=== PATIENT | female | born 1995 | race American Indian/Alaskan Native ===

== ENCOUNTER 2016-12-11 16:10 | Emergency (ER) | payer BC ==
[2016-12-11 16:39] LABS: Basophils % (Auto) 0.8 % (0.0-1.8); Eosinophils % (Auto) 0.5 % (0.0-4.3); Hematocrit 41.3 % (30.3-42.9); Hemoglobin 13.7 gm/dl (10.1-14.3); Mean Corpuscular HGB Conc 33 % (30-34); Mean Corpuscular Hemoglobin 30 pg (28-32); Mean Corpuscular Volume 89 fl (79-97); Platelet Count 269 K/mm3 (140-440); Red Blood Count 4.62 M/mm3 (3.65-5.03); Red Cell Distribution Width 13.9 % (13.2-15.2); White Blood Count 11.1 K/mm3 (4.5-11.0)
[2016-12-11 17:14] LABS: Bilirubin,Urine NEG (Negative); Blood,Urine SM (Negative); Ketones,Urine NEG (Negative); Leukocyte Esterase,Urine NEG (Negative); Mucus,Urine 2+ /HPF; Nitrite,Urine NEG (Negative); Protein,Urine <15 mg/dL mg/dL (Negative)
--- NOTE | 2016-12-11 19:16 | Ultrasound Report ---
FINAL REPORT EXAM: US OB TRANSVAGINAL HISTORY: abd pain/ vaginal bleeding TECHNIQUE: Ultrasound obstetrical transvaginal PRIORS: None. FINDINGS: There is gestational sac present within the lower uterine segment. A pole is identified with crown-rump length 2.3 centimeters corresponding to estimated gestational age 9 weeks 0 days with estimated date of delivery July 16, 2017 cardiac activity present with heart rate 173 beats per minute. There is mixed echogenicity focus just adjacent to the gestational sac measuring 4.5 x 1.4 by 3.0 centimeters suspicious for subchorionic hemorrhage. Uterus is 8.8 x 6.7 x 7.6 centimeters The right ovary is 4.4 x 1.8 x 4.0 centimeters. Left ovary is 3.3 x 1.5 x 2.3 centimeters. No free fluid identified in the cul-de-sac IMPRESSION: Gestational sac within the lower uterine segment. Single live intrauterine gestation estimated at 9 weeks 0 days. Probable moderate size subchorionic hemorrhage. Continued close interval followup recommended
--- NOTE | 2016-12-11 19:18 | Ultrasound Report ---
FINAL REPORT EXAM: US OB \T\lt; = 14 WEEKS FETUS HISTORY: abd pain/ vaginal bleeding TECHNIQUE: Ultrasound pelvis transabdominal PRIORS: None. FINDINGS: FINDINGS: There is gestational sac present within the lower uterine segment. A pole is identified with crown-rump length 2.3 centimeters corresponding to estimated gestational age 9 weeks 0 days with estimated date of delivery July 16, 2017 cardiac activity present with heart rate 173 beats per minute. There is mixed echogenicity focus just adjacent to the gestational sac measuring 4.5 x 1.4 by 3.0 centimeters suspicious for subchorionic hemorrhage. Uterus is 8.8 x 6.7 x 7.6 centimeters The right ovary is 4.4 x 1.8 x 4.0 centimeters. Left ovary is 3.3 x 1.5 x 2.3 centimeters. No free fluid identified in the cul-de-sac IMPRESSION: Gestational sac within the lower uterine segment. Single live intrauterine gestation estimated at 9 weeks 0 days. Probable moderate size subchorionic hemorrhage. Continued close interval followup recommended
--- NOTE | 2016-12-11 22:43 | Emergency Department Report ---
ED Female HPI - General Chief complaint: Vaginal Bleeding Stated complaint: X8WKS/BLEEDING Time Seen by Provider: 12/11/16 20:31 Source: patient Mode of arrival: Ambulatory Limitations: No Limitations - History of Present Illness Initial comments: 21-year-old female at 8 weeks gestation with no past medical history is presenting to the emergency department complaining of vaginal bleeding. Onset of symptoms started this morning. Patient states amount of blood is minimal, consistent with spotting. Patient denies pelvic pain. Patient denies: Fever/ chills, chest pain, shortness of breath, nausea/vomiting/diarrhea. MD Complaint: vaginal bleeding -: Gradual Radiation: non-radiating Severity: mild Consistency: intermittent Worsens with: none Are you Now?: Yes Associated Symptoms: denies: vaginal discharge, abdominal pain, nausea/vomiting , loss of appetite, dysuria, hematuria, shortness of breath, syncope, weakness - Related Data Previous Rx's Medication Instructions Recorded Last Taken Type Metoclopramide [Reglan] 10 mg PO TID #20 tab 12/11/16 Unknown Rx Prenat Vit Comb.10/Iron/FA/Dha 1 each PO 2XWHS #30 combo..pkg 12/11/16 Unknown Rx [Vitafol-Ob+Dha Combo Pack] Allergies Allergy/AdvReac Type Severity Reaction Status Date / Time No Known Allergies Allergy Unverified 12/11/16 16:13 ED Review of Systems ROS: Stated complaint: X8WKS/BLEEDING Other details as noted in HPI Constitutional: denies: chills, fever Eyes: denies: eye pain, eye discharge, vision change ENT: denies: ear pain, throat pain Respiratory: denies: cough, shortness of breath, wheezing Cardiovascular: denies: chest pain, palpitations Endocrine: no symptoms reported Gastrointestinal: denies: abdominal pain, nausea, diarrhea Genitourinary: other (vaginal spotting ). denies: urgency, dysuria, discharge Musculoskeletal: denies: back pain, joint swelling, arthralgia Skin: denies: rash, lesions Neurological: denies: headache, weakness, paresthesias Psychiatric: denies: anxiety, depression Hematological/Lymphatic: denies: easy bleeding, easy bruising ED Past Medical Hx - Past Medical History Previous Medical History?: No - Surgical History Past Surgical History?: No - Social History Smoking Status: Never Smoker Substance Use Type: None - Medications Home Medications: Home Medications Medication Instructions Recorded Confirmed Last Taken Type Metoclopramide [Reglan] 10 mg PO TID #20 tab 12/11/16 Unknown Rx Prenat Vit Comb.10/Iron/FA/Dha 1 each PO 2XWHS #30 combo..pkg 12/11/16 Unknown Rx [Vitafol-Ob+Dha Combo Pack] ED Physical Exam - General Limitations: No Limitations General appearance: alert, in no apparent distress - Head Head exam: Present: atraumatic, normocephalic - Eye Eye exam: Present: normal appearance - ENT ENT exam: Present: mucous membranes moist - Neck Neck exam: Present: normal inspection - Respiratory Respiratory exam: Present: normal lung sounds bilaterally. Absent: respiratory distress - Cardiovascular Cardiovascular Exam: Present: regular rate, normal rhythm. Absent: systolic murmur, diastolic murmur, rubs, gallop - GI/Abdominal GI/Abdominal exam: Present: soft, normal bowel sounds - External exam: Present: normal external exam Speculum exam: Present: normal speculum exam. Absent: erythema, vaginal discharge, cervical discharge, vaginal bleeding, tissue Bi-manual exam: Present: normal bi-manual exam. Absent: cervical motion tendernes, adnexal tenderness, uterine tenderness - Extremities Exam Extremities exam: Present: normal inspection - Back Exam Back exam: Present: normal inspection - Neurological Exam Neurological exam: Present: alert, oriented X3 - Psychiatric Psychiatric exam: Present: normal affect, normal mood - Skin Skin exam: Present: warm, dry, intact, normal color. Absent: rash ED Course Vital Signs 12/11/16 12/11/16 16:13 19:44 Temperature 98.5 F 98 F Pulse Rate 74 95 H Respiratory 18 18 Rate Blood Pressure 128/64 Blood Pressure 118/69 [Left] O2 Sat by Pulse 100 98 Oximetry - Reevaluation(s) Reevaluation #1: 12/11/16 22:42 Resting comfortably. she is aware there is a subchorionic hemorrhage, she's been given the results of the ultrasound to follow up with OB. ED Medical Decision Making - Lab Data Result diagrams: 12/11/16 16:21 - Radiology Data Radiology results: report reviewed, image reviewed Gestational sac within the lower uterine segment. Single live IUP gestation estimated 9 weeks 0 days. Probable moderate size subchorionic hemorrhage. Continue close interval follow-up recommended. Dr. CRISTIAN M.D. - Medical Decision Making -year-old female with no past medical history presented to ED complaining of vaginal bleeding. Critical Care Time: No Critical care attestation.: If time is entered above; I have spent that time in minutes in the direct care of this critically ill patient, excluding procedure time. ED Disposition Clinical Impression: Threatened Disposition: - TO HOME OR SELFCARE Is pt being admited?: No Does the pt Need Aspirin: No Condition: Stable Instructions: Threatened Miscarriage (ED) Prescriptions: Metoclopramide [Reglan] 10 mg PO TID #20 tab Prenat Vit Comb.10/Iron/FA/Dha [Vitafol-Ob+Dha Combo Pack] 1 each PO 2XWHS #30 combo..pkg Referrals: PRIMARY CARE, [Primary Care Provider] - 3-5 Days BANG NAIR MD [Staff Physician] - 2-3 Days Forms: Work/School Release Form(ED) Time of Disposition: 23:21
[2016-12-11 23:41] VITALS: BP 126/76
== END 2016-12-11 23:40 | disposition home or self-care (01) ==
LOC: ED 16:10
DX: O20.0 Threatened abortion (principal); Z3A.09 9 weeks gestation of pregnancy
CPT/HCPCS: 36415; 76801; 76817; 81001; 84702; 85025; 86850; 86900; 86901; 87210; 87591

== ENCOUNTER 2019-05-18 15:57 | Inpatient (IN) | payer BC, MEDICAID ==
[2019-05-18] MEDS ORDERED: LIDOCAINE (2%) 20 MG/1 ML VIAL 20 ML MDV INFILTRATI ONE (16:48)
[2019-05-18] MEDS ORDERED: MINERAL OIL 30 ML ORAL LIQD PO PRN (16:48)
[2019-05-18] MEDS ORDERED: TERBUTALINE 1 MG/1 ML INJ IVP PRN (16:48)
[2019-05-18] MEDS ORDERED: ePHEDrine SULFATE 50 MG/1 ML INJ IV PRN (16:48)
[2019-05-18] MEDS ORDERED: ONDANSETRON 4 MG/2 ML INJ IV PRN (16:48)
[2019-05-18] MEDS ORDERED: TERBUTALINE 1 MG/1 ML INJ SUB-Q PRN (16:48)
[2019-05-18] MEDS ORDERED: OXYTOCIN 20 UNIT/1000ML DRIP 20 UNITS/1,000 ML BAG IV SCH (17:00)
--- NOTE | 2019-05-18 17:20 | History and Physical Report ---
History of Present Illness Date of examination: 05/18/19 Date of admission: 05/18/2019 Chief complaint: Sent for IOL History of present illness: Pt is a 23yo AA Fe , KEREN 05/19/2019 (US; per [facility]), 39 weeks 6 days. Per records/LMP KEREN 05/10/2019 which would be 41 week 1 day. Pt hasn't been seen in OB office since 04/19/2019. Pt seen at [facility] today with decreased FM, nonreactive NST, BPP 11/21. Sent for induction of labor. Pt initiated care with [facility] at 13w2d. Co-managed with [facility] due to maternal obesity. Vitamin D deficiency (D3 supplementation). Varicella non-immune (plan vaccination PP). labs: O positive Rubella Immune HBsAg Negative HIV Negative VDRL Non-reactive GC Negative CHL Negative Trich Negative HSV2 Negative MSAFP Negative GBS Negative Past History Past Medical History: no pertinent history Past Surgical History: no surgical history [employer] History: denies: abnormal PAP smear, chlamydia, gonorrhea, hepatitis B, h epatitis C, herpes, HIV, syphilis, trichomonas Family/Genetic History: hypertension Social history: no significant social history, single, lives with family, full code. denies: smoking, alcohol abuse, prescription drug abuse, IV drug use - Obstetrical History Expected Date of Delivery: 05/19/19 Actual Gestation: 39 Week(s) 6 Day(s) : 2 Para: 1 Hx # Term Pregnancies: 1 Number of Pregnancies: 0 Spontaneous Abortions: 0 Induced : 0 Number of Living Children: 1 #1 Infant Gender: Male year: 2[age][birth year] Birthweight: 3.487 kg Method of Delivery: Vaginal Gestational age at delivery: 39 Complications: none Medications and Allergies Allergies Allergy/AdvReac Type Severity Reaction Status Date / Time No Known Allergies Allergy Unverified 12/11/16 16:13 Home Medications Medication Instructions Recorded Confirmed Last Taken Type Metoclopramide [Reglan] 10 mg PO TID #20 tab 12/11/16 Unknown Rx Vit 10/Iron/Folic/Dha 1 each PO 2XWHS #30 combo..pkg 12/11/16 Unknown Rx [Vitafol-Ob+Dha Combo Pack] Active Meds: Active Medications Ephedrine Sulfate (Ephedrine Sulfate) 10 mg IV Q2M PRN PRN Reason: Hypotension Oxytocin/Sodium Chloride (Pitocin/Ns 20 Unit/1000ml Drip) 20 units in 1,000 mls @ 125 mls/hr IV DIRECT RUY Lactated Ringer's (Lactated Ringers) 1,000 mls @ 125 mls/hr IV DIRECT RUY Lidocaine (Xylocaine 2%) 20 ml INFILTRATI ONCE ONE Stop: 05/18/19 16:49 Mineral Oil (Mineral Oil) 30 ml PO QHS PRN PRN Reason: Constipation Ondansetron HCl (Zofran) 4 mg IV Q8H PRN PRN Reason: Nausea And Vomiting Terbutaline Sulfate (Brethine) 0.25 mg SUB-Q ONCE PRN PRN Reason: Hyperstimulation/Hypertonicity Terbutaline Sulfate (Brethine) 0.25 mg IVP ONCE PRN PRN Reason: Hyperstimulation/Hypertonicity Review of Systems Eyes: normal appearance Cardiovascular: no chest pain, no shortness of breath Respiratory: no shortness of breath Breasts: normal Gastrointestinal: no nausea, no vomiting, no diarrhea, no constipation Genitourinary: normal appearance, no vaginal bleeding, no leakage of fluid, no genital sores, no contractions Integumentary: no rash, no sores, no lesions - Physical Exam Breasts: Positive: normal Cardiovascular: Regular rate, Normal S1, Normal S2, No murmurs Lungs: Positive: Clear to auscultation, Normal air movement Abdomen: Positive: normal appearance, soft, normal bowel sounds. Negative: distention Genitourinary (Female): Positive: normal external genitalia, normal perenium Vagina: Positive: normal moisture Uterus: Positive: enlarged (Gravid) Anus/Rectum: Positive: normal perianal skin Extremities: Positive: normal Deep Tendon Reflex Grade: Normal +2 - Obstetrical FHR: category 1 Uterine Contraction Monitor Mode: External Cervical Dilatation: 3 Cervical Effacement Percentage: 50 station: -2 Uterine Contraction Pattern: Absent Uterine Tone Measurement Phase: Resting Results All other labs normal. Assessment and Plan A: Term IUP at 39weeks 6days Category 1 tracing; Reactive NST GBS Negative IOL per [facility] (MO, BPP 6/10 in office today) P: Admit to L&D; Routine labor orders Pitocin augmentation Anticipate
[2019-05-18] MEDS ORDERED: OXYTOCIN DRIP 30 UNITS/500 ML BAG IV SCH (18:00)
[2019-05-18 19:48] LABS: Hematocrit 42.1 % (30.3-42.9); Hemoglobin 14.4 gm/dl (10.1-14.3); Mean Corpuscular HGB Conc 34 % (30-34); Mean Corpuscular Volume 86 fl (79-97); Platelet Count 244 K/mm3 (140-440); Red Cell Distribution Width 14.4 % (13.2-15.2)
[2019-05-18] MEDS: LACTATED RINGERS 1,000 ML IV SCH (22:10)
[2019-05-19] MEDS: LACTATED RINGERS 1,000 ML IV SCH ×2 (05:35→15:04)
--- NOTE | 2019-05-19 09:32 | Progress Note ---
Assessment and Plan - Patient Problems (1) Encounter for induction of labor Current Visit: Yes Status: Acute Plan to address problem: Continue routine labor orders Epidural placement AROM after epidural, place internals for monitoring Anticipate (2) Morbid obesity with BMI of 40.0-44.9, adult Current Visit: Yes Status: Acute Subjective - Subjective Date of service: 05/19/19 (924) Principal diagnosis: IOL Interval history: See admission H & P Patient reports: movement normal, contractions (painful ctxs), no loss of fluid, no vaginal bleeding Objective - Vital Signs Vital Signs: Vital Signs - 12hr 05/18/19 05/18/19 05/19/19 22:47 22:48 05:30 Temperature 97.9 F Pulse Rate 93 H 93 H 71 Respiratory 18 Rate Blood Pressure 113/58 Blood Pressure 113/58 [Left] O2 Sat by Pulse 98 Oximetry 05/19/19 05/19/19 05/19/19 05:35 05:40 05:45 Temperature Pulse Rate 72 68 67 Respiratory Rate Blood Pressure Blood Pressure [Left] O2 Sat by Pulse 97 97 97 Oximetry 05/19/19 05/19/19 05/19/19 05:50 05:55 06:00 Temperature Pulse Rate 67 76 54 L Respiratory Rate Blood Pressure Blood Pressure [Left] O2 Sat by Pulse 96 97 97 Oximetry 05/19/19 05/19/19 05/19/19 06:05 06:10 06:15 Temperature Pulse Rate 61 57 L 56 L Respiratory Rate Blood Pressure Blood Pressure [Left] O2 Sat by Pulse 97 97 97 Oximetry 05/19/19 05/19/19 05/19/19 06:20 06:25 06:30 Temperature Pulse Rate 56 L 55 L 60 Respiratory Rate Blood Pressure Blood Pressure [Left] O2 Sat by Pulse 97 97 97 Oximetry 05/19/19 05/19/19 05/19/19 06:35 06:40 06:45 Temperature Pulse Rate 53 L 59 L 55 L Respiratory Rate Blood Pressure Blood Pressure [Left] O2 Sat by Pulse 98 97 97 Oximetry 05/19/19 05/19/19 05/19/19 06:50 06:55 07:00 Temperature Pulse Rate 65 60 59 L Respiratory Rate Blood Pressure Blood Pressure [Left] O2 Sat by Pulse 98 97 97 Oximetry 05/19/19 05/19/19 05/19/19 07:05 07:10 07:15 Temperature Pulse Rate 59 L 63 56 L Respiratory Rate Blood Pressure Blood Pressure [Left] O2 Sat by Pulse 98 97 97 Oximetry 05/19/19 05/19/19 05/19/19 07:20 07:25 07:30 Temperature Pulse Rate 56 L 58 L 58 L Respiratory Rate Blood Pressure Blood Pressure [Left] O2 Sat by Pulse 97 98 98 Oximetry 05/19/19 05/19/19 05/19/19 07:35 07:40 07:41 Temperature 97.8 F Pulse Rate 59 L 54 L 54 L Respiratory 18 Rate Blood Pressure 120/65 Blood Pressure 120/65 [Left] O2 Sat by Pulse 98 98 Oximetry 05/19/19 05/19/19 05/19/19 07:45 07:50 07:55 Temperature Pulse Rate 55 L 55 L 54 L Respiratory Rate Blood Pressure Blood Pressure [Left] O2 Sat by Pulse 97 98 97 Oximetry 05/19/19 05/19/19 05/19/19 08:00 08:05 08:10 Temperature Pulse Rate 58 L 57 L 55 L Respiratory Rate Blood Pressure Blood Pressure [Left] O2 Sat by Pulse 97 97 98 Oximetry 05/19/19 05/19/19 05/19/19 08:15 08:27 08:28 Temperature Pulse Rate 60 65 63 Respiratory Rate Blood Pressure 131/66 Blood Pressure [Left] O2 Sat by Pulse 97 100 Oximetry 05/19/19 05/19/19 05/19/19 08:29 08:32 08:37 Temperature Pulse Rate 57 L 59 L 57 L Respiratory Rate Blood Pressure Blood Pressure [Left] O2 Sat by Pulse 90 99 99 Oximetry 05/19/19 08:51 Temperature Pulse Rate 56 L Respiratory Rate Blood Pressure 119/72 Blood Pressure [Left] O2 Sat by Pulse Oximetry - Exam Breasts: deferred Cardiovascular: Regular rate Lungs: Normal air movement Abdomen: Present: other (gravid) Uterus: Present: other (S=D) FHR: category 1 Uterine Contraction Monitor Mode: External Cervical Dilatation: 6 (Vertex) Cervical Effacement Percentage: 80 station: -1 Uterine Contraction Pattern: Irregular Uterine Tone Measurement Phase: Resting Uterine Contraction Intensity: Moderate Extremities: normal Deep Tendon Reflex Grade: Normal +2 - Labs Labs: Abnormal Labs 05/18/19 19:27 Hgb 14.4 H Laboratory Results - last 24 hr 05/18/19 05/18/19 19:27 19:30 WBC 8.7 RBC 4.90 Hgb 14.4 H Hct 42.1 MCV 86 MCH 29 MCHC 34 RDW 14.4 Plt Count 244 Blood Type O POSITIVE Antibody Screen Negative
[2019-05-19] MEDS ORDERED: NALOXONE 2 MG/2 ML INJ IV PRN (12:46)
[2019-05-19] MEDS ORDERED: ePHEDrine SULFATE 50 MG/1 ML INJ IV PRN (12:46)
--- NOTE | 2019-05-19 12:57 | Progress Note ---
Assessment and Plan - Patient Problems (1) Encounter for induction of labor Current Visit: Yes Status: Acute Plan to address problem: Continue routine labor orders AROM at 1215, clear fluids, tolerated well FSE placed for monitoring Continue Pitocin as tolerated Anticipate (2) Morbid obesity with BMI of 40.0-44.9, adult Current Visit: Yes Status: Acute Subjective - Subjective Date of service: 05/19/19 Principal diagnosis: IOL Interval history: See admission H & P Patient reports: new complaints (Feels much better after epidural), movement normal, no loss of fluid, no vaginal bleeding Objective - Vital Signs Vital Signs: Vital Signs - 12hr 05/19/19 05/19/19 05/19/19 05:30 05:35 05:40 Temperature Pulse Rate 71 72 68 Respiratory Rate Blood Pressure Blood Pressure [Left] O2 Sat by Pulse 98 97 97 Oximetry 05/19/19 05/19/19 05/19/19 05:45 05:50 05:55 Temperature Pulse Rate 67 67 76 Respiratory Rate Blood Pressure Blood Pressure [Left] O2 Sat by Pulse 97 96 97 Oximetry 05/19/19 05/19/19 05/19/19 06:00 06:05 06:10 Temperature Pulse Rate 54 L 61 57 L Respiratory Rate Blood Pressure Blood Pressure [Left] O2 Sat by Pulse 97 97 97 Oximetry 05/19/19 05/19/19 05/19/19 06:15 06:20 06:25 Temperature Pulse Rate 56 L 56 L 55 L Respiratory Rate Blood Pressure Blood Pressure [Left] O2 Sat by Pulse 97 97 97 Oximetry 05/19/19 05/19/19 05/19/19 06:30 06:35 06:40 Temperature Pulse Rate 60 53 L 59 L Respiratory Rate Blood Pressure Blood Pressure [Left] O2 Sat by Pulse 97 98 97 Oximetry 05/19/19 05/19/19 05/19/19 06:45 06:50 06:55 Temperature Pulse Rate 55 L 65 60 Respiratory Rate Blood Pressure Blood Pressure [Left] O2 Sat by Pulse 97 98 97 Oximetry 05/19/19 05/19/19 05/19/19 07:00 07:05 07:10 Temperature Pulse Rate 59 L 59 L 63 Respiratory Rate Blood Pressure Blood Pressure [Left] O2 Sat by Pulse 97 98 97 Oximetry 12/06/19 12/06/19 12/06/19 07:15 07:20 07:25 Temperature Pulse Rate 56 L 56 L 58 L Respiratory Rate Blood Pressure Blood Pressure [Left] O2 Sat by Pulse 97 97 98 Oximetry 05/19/19 05/19/19 05/19/19 07:30 07:35 07:40 Temperature 97.8 F Pulse Rate 58 L 59 L 54 L Respiratory 18 Rate Blood Pressure Blood Pressure 120/65 [Left] O2 Sat by Pulse 98 98 98 Oximetry 05/19/19 05/19/19 05/19/19 07:41 07:45 07:50 Temperature Pulse Rate 54 L 55 L 55 L Respiratory Rate Blood Pressure 120/65 Blood Pressure [Left] O2 Sat by Pulse 97 98 Oximetry 05/19/19 05/19/19 05/19/19 07:55 08:00 08:05 Temperature Pulse Rate 54 L 58 L 57 L Respiratory Rate Blood Pressure Blood Pressure [Left] O2 Sat by Pulse 97 97 97 Oximetry 05/19/19 05/19/19 05/19/19 08:10 08:15 08:27 Temperature Pulse Rate 55 L 60 65 Respiratory Rate Blood Pressure Blood Pressure [Left] O2 Sat by Pulse 98 97 100 Oximetry 05/19/19 05/19/19 05/19/19 08:28 08:29 08:32 Temperature Pulse Rate 63 57 L 59 L Respiratory Rate Blood Pressure 131/66 Blood Pressure [Left] O2 Sat by Pulse 90 99 Oximetry 05/19/19 05/19/19 05/19/19 08:37 08:51 09:31 Temperature Pulse Rate 57 L 56 L 65 Respiratory Rate Blood Pressure 119/72 Blood Pressure [Left] O2 Sat by Pulse 99 100 Oximetry 05/19/19 05/19/19 05/19/19 09:36 09:41 09:46 Temperature Pulse Rate 62 63 65 Respiratory Rate Blood Pressure Blood Pressure [Left] O2 Sat by Pulse 99 98 97 Oximetry 05/19/19 05/19/19 05/19/19 09:49 09:51 09:56 Temperature Pulse Rate 64 65 64 Respiratory Rate Blood Pressure Blood Pressure [Left] O2 Sat by Pulse 93 98 96 Oximetry 05/19/19 05/19/19 05/19/19 10:01 10:06 10:11 Temperature Pulse Rate 65 63 83 Respiratory Rate Blood Pressure Blood Pressure [Left] O2 Sat by Pulse 96 97 98 Oximetry 05/19/19 05/19/1905/19/19 10:12 10:16 10:21 Temperature Pulse Rate 68 66 61 Respiratory Rate Blood Pressure Blood Pressure [Left] O2 Sat by Pulse 80 L 99 98 Oximetry 05/19/19 05/19/19 05/19/19 10:26 10:28 10:29 Temperature Pulse Rate 66 66 68 Respiratory Rate Blood Pressure 133/60 Blood Pressure [Left] O2 Sat by Pulse 99 93 Oximetry 05/19/19 05/19/19 05/19/19 10:31 10:36 10:40 Temperature Pulse Rate 65 67 79 Respiratory Rate Blood Pressure 107/56 Blood Pressure [Left] O2 Sat by Pulse 97 98 94 Oximetry 05/19/19 05/19/19 05/19/19 10:41 10:46 10:48 Temperature Pulse Rate 84 90 87 Respiratory Rate Blood Pressure 118/77 131/72 Blood Pressure [Left] O2 Sat by Pulse 97 99 Oximetry 05/19/19 05/19/19 05/19/19 10:51 10:56 10:59 Temperature Pulse Rate 84 90 95 H Respiratory Rate Blood Pressure 126/90 Blood Pressure [Left] O2 Sat by Pulse 98 98 93 Oximetry 05/19/19 05/19/19 05/19/19 11:01 11:06 11:07 Temperature Pulse Rate 77 114 H 101 H Respiratory Rate Blood Pressure Blood Pressure [Left] O2 Sat by Pulse 91 98 92 Oximetry 05/19/19 05/19/19 05/19/19 11:10 11:11 11:16 Temperature Pulse Rate 75 69 63 Respiratory Rate Blood Pressure 144/76 Blood Pressure [Left] O2 Sat by Pulse 96 97 Oximetry 05/19/19 05/19/19 05/19/19 11:19 11:21 11:23 Temperature Pulse Rate 61 60 62 Respiratory Rate Blood Pressure 116/68 Blood Pressure [Left] O2 Sat by Pulse 97 89 Oximetry 05/19/19 05/19/19 05/19/19 11:26 11:31 11:36 Temperature Pulse Rate 72 64 Respiratory Rate Blood Pressure 114/68 Blood Pressure [Left] O2 Sat by Pulse 83 L 100 99 Oximetry 05/19/19 05/19/19 05/19/19 11:38 11:41 11:46 Temperature Pulse Rate 80 70 74 Respiratory Rate Blood Pressure 134/75 Blood Pressure [Left] O2 Sat by Pulse 87 98 98 Oximetry 05/19/19 05/19/19 05/19/19 11:51 11:56 12:01 Temperature Pulse Rate 65 66 78 Respiratory Rate Blood Pressure Blood Pressure [Left] O2 Sat by Pulse 98 99 87 Oximetry 05/19/19 05/19/19 05/19/19 12:02 12:06 12:11 Temperature Pulse Rate 77 62 58 L Respiratory Rate Blood Pressure 127/59 Blood Pressure [Left] O2 Sat by Pulse 99 100 Oximetry 05/19/19 05/19/19 05/19/19 12:16 12:21 12:26 Temperature Pulse Rate 64 56 L 55 L Respiratory Rate Blood Pressure Blood Pressure [Left] O2 Sat by Pulse 100 100 100 Oximetry 05/19/19 05/19/19 05/19/19 12:31 12:36 12:39 Temperature Pulse Rate 82 59 L 64 Respiratory Rate Blood Pressure Blood Pressure [Left] O2 Sat by Pulse 100 100 86 Oximetry 05/19/19 05/19/19 05/19/19 12:41 12:46 12:48 Temperature Pulse Rate 56 L 60 61 Respiratory Rate Blood Pressure Blood Pressure [Left] O2 Sat by Pulse 99 98 84 Oximetry - Exam Breasts: deferred Cardiovascular: Regular rate Lungs: Normal air movement FHR: category 1, other (FSE placed without difficulty) Uterine Contraction Monitor Mode: External Cervical Dilatation: 7 (majority of cervix posterior and on left) Cervical Effacement Percentage: 80 station: -1 Uterine Contraction Pattern: Irregular Uterine Tone Measurement Phase: Resting Uterine Contraction Intensity: Moderate Extremities: normal - Labs Labs: Abnormal Labs 05/18/19 19:27 Hgb 14.4 H Laboratory Results - last 24 hr 05/18/19 05/18/19 19:27 19:30 WBC 8.7 RBC 4.90 Hgb 14.4 H Hct 42.1 MCV 86 MCH 29 MCHC 34 RDW 14.4 Plt Count 244 Blood Type O POSITIVE Antibody Screen Negative
[2019-05-19] MEDS ORDERED: fentaNYL-BUPIV 2 MCG/ML-0.125% 200 MCG/100 ML BAG EPIDURAL SCH (13:00)
[2019-05-19] MEDS ORDERED: PROMETHAZINE 25 MG TAB PO PRN (16:08)
[2019-05-19] MEDS ORDERED: WITCH HAZEL/ GLYCERIN PAD TP PRN (16:08)
[2019-05-19] MEDS ORDERED: LANOLIN/ZINC/DIMETHICONE (LANSINOH) 7 GM TP PRN (16:08)
[2019-05-19] MEDS ORDERED: diphenhydrAMINE 25 MG CAP PO PRN (16:08)
[2019-05-19] MEDS ORDERED: ONDANSETRON 4 MG/2 ML INJ IV PRN (16:08)
[2019-05-19] MEDS ORDERED: MAGNESIUM HYDROXIDE (MOM) ORAL LIQD UDC PO PRN (16:08)
--- NOTE | 2019-05-19 16:16 | Procedure Note ---
OB Delivery Note - Delivery Date of Delivery: 05/19/19 (3303) Surgeon: ELIAN BYRNES (CNM) Estimated blood loss: 200cc - Vaginal Delivery presentation: vertex Delivery position: OA (GENESIS) Intrapartum events: none Delivery induction: oxytocin Delivery augmentation: rupture of membranes (1215), pitocin Delivery monitor: external uterine, internal FHT Route of delivery: Delivery placenta: spontaneous (1559, penny, disposed per hospital policy) Delivery cord: nuchal cord (x1), 3 umbilical vessels Episiotomy: none Delivery laceration: none Anesthesia: epidural Delivery comments: of viable male with nuchal cord x 1, reduced at perineum, with spontaneous cry. Placed directly to maternal abdomen. Cord double clamped and cut by FOB after cessation of pulsation. Placenta spontaneously delivered, penny, disposed per hospital policy. Uterus firm @ U-2. Perineum intact. Mother and baby safe, stable and bonding well. - Infant A at 1 minute: 8 at 5 minutes: 9 Gender: Male (Weight: 3499 gms (7lbs 11ozs) 21 inches)
[2019-05-19] MEDS: IBUPROFEN 600 MG TAB PO SCH ×2 (17:29→22:01)
[2019-05-20] MEDS: IBUPROFEN 600 MG TAB PO SCH ×3 (05:50→23:28)
[2019-05-20 06:57] LABS: Hematocrit 38.8 % (30.3-42.9); Hemoglobin 13.1 gm/dl (10.1-14.3)
[2019-05-20] MEDS: FERROUS SULFATE 325 MG TAB PO SCH (10:00)
[2019-05-20] MEDS: PRENATAL VIT27-FE FUMARATE-FOLIC ACID VIT TAB PO SCH (10:01)
[2019-05-20] MEDS: oxyCODONE /ACETAMINOPHEN 5-325MG TAB PO PRN ×2 (10:01→23:27)
--- NOTE | 2019-05-20 10:58 | Progress Note ---
Assessment and Plan A: day 1 S/P . P: Continue current management. Subjective - Subjective Date of service: 05/20/19 Principal diagnosis: day 1 S/P Interval history: day 1 S/P spontaneous vaginal delivery. Doing well. Voiding without difficulty. Ambulating well. Small amount of lochia. Patient reports no problems or complaints. Patient reports: appetite normal, voiding normally, flatus, ambulating normally, no dizzy ambulation, no nauseated [place]: doing well Objective - Vital Signs Latest vital signs: Vital Signs Temp Pulse Resp BP BP Pulse Ox 05/20/19 07:39 98.1 F 69 24 116/64 98 05/20/19 06:50 18 05/20/19 05:50 18 05/20/19 00:00 98.7 F 64 18 112/78 05/19/19 23:01 18 05/19/19 22:01 18 05/19/19 19:30 98.6 F 69 18 112/72 05/19/19 18:36 98.6 F 75 16 113/63 98 05/19/19 16:36 61 107/58 05/19/19 16:30 71 106/55 05/19/19 16:09 95 H 92 05/19/19 16:06 72 99 05/19/19 16:03 77 132/62 84 05/19/19 16:01 64 99 05/19/19 15:56 62 165/70 100 05/19/19 15:51 80 L 05/19/19 15:50 57 L 86 05/19/19 15:46 80 74 L 05/19/19 15:44 103 H 92 05/19/19 15:41 137 H 100 05/19/19 15:38 73 89 05/19/19 15:36 68 100 05/19/19 15:33 84 79 L 05/19/19 15:31 64 100 05/19/19 15:29 56 L 119/57 05/19/19 15:27 55 L 123/59 05/19/19 15:26 56 L 100 05/19/19 15:21 59 L 100 05/19/19 15:16 61 100 05/19/19 15:11 69 100 05/19/19 15:06 64 100 05/19/19 15:01 57 L 100 05/19/19 14:56 64 100 12/06/19 14:51 57 L 100 05/19/19 14:48 59 L 125/64 05/19/19 14:46 97.7 F 64 26 H 125/64 100 05/19/19 14:41 62 100 05/19/19 14:36 56 L 100 05/19/19 14:31 64 100 05/19/19 14:26 77 100 05/19/19 14:21 55 L 100 05/19/19 14:16 71 100 05/19/19 14:11 59 L 100 05/19/19 14:06 65 100 05/19/19 14:01 72 100 05/19/19 13:56 58 L 98 05/19/19 13:51 61 100 05/19/19 13:46 58 L 99 05/19/19 13:41 56 L 99 05/19/19 13:36 63 99 05/19/19 13:31 57 L 98 05/19/19 13:26 57 L 98 05/19/19 13:21 57 L 100 05/19/19 13:16 59 L 99 05/19/19 13:11 58 L 99 05/19/19 13:06 58 L 99 05/19/19 13:02 56 L 76 L 05/19/19 13:01 61 100 05/19/19 12:56 65 99 05/19/19 12:54 66 90 05/19/19 12:51 55 L 99 05/19/19 12:48 61 84 05/19/19 12:46 60 98 05/19/19 12:41 56 L 99 05/19/19 12:39 64 86 05/19/19 12:36 59 L 100 05/19/19 12:31 82 100 05/19/19 12:26 55 L 100 05/19/19 12:21 56 L 100 05/19/19 12:16 64 100 05/19/19 12:11 58 L 100 05/19/19 12:06 62 99 05/19/19 12:02 77 127/59 05/19/19 12:01 78 87 05/19/19 11:56 66 99 05/19/19 11:51 65 98 05/19/19 11:46 74 134/75 98 05/19/19 11:41 70 98 05/19/19 11:38 80 87 05/19/19 11:36 64 114/68 99 05/19/19 11:31 72 100 05/19/19 11:30 67 18 118/77 100 05/19/19 11:26 83 L 05/19/19 11:23 62 89 05/19/19 11:21 60 97 05/19/19 11:19 61 116/68 05/19/19 11:16 63 97 05/19/19 11:11 69 96 05/19/19 11:10 75 144/76 05/19/19 11:07 101 H 92 05/19/19 11:06 114 H 98 05/19/19 11:01 77 91 05/19/19 10:59 95 H 126/90 93 05/19/19 10:56 90 98 Intake and Output 05/19/19 05/20/19 05/20/19 23:59 07:59 15:59 Intake Total 500 300 Output Total 600 Balance -100 300 Intake: Oral 200 Intake, Free Water 300 300 Output: Urine 600 Void 600 Other: Total, Intake Amount 200 Total, Output Amount 600 # Voids Void 1 1 - Exam Cardiovascular: Present: Regular rate, Normal S1, Normal S2 Lungs: Present: Clear to auscultation Abdomen: Present: normal appearance, soft, normal bowel sounds. Absent: distention, tenderness, rigidity Uterus: Present: normal, fundal height below umbilicus. Absent: bogginess, tenderness Extremities: Present: normal. Absent: tenderness
[2019-05-21] MEDS: IBUPROFEN 600 MG TAB PO SCH (07:37)
[2019-05-21] MEDS: PRENATAL VIT27-FE FUMARATE-FOLIC ACID VIT TAB PO SCH (10:50)
[2019-05-21] MEDS: FERROUS SULFATE 325 MG TAB PO SCH (10:50)
--- NOTE | 2019-05-21 12:52 | Progress Note ---
Assessment and Plan A: day 2 S/P spontaneous vaginal delivery. P: Discharge patient home. Discussed with patient discharge instructions and warning signs. Advised patient to continue taking her vitamins at home. Advised patient to avoid intercourse, lifting and heavy housework, driving. Advised patient to follow up at [facility] in 6 weeks for exam. Patient voiced understanding of all instructions. Subjective - Subjective Date of service: 05/21/19 Principal diagnosis: day 2 S/P Interval history: day 2 S/P spontaneous vaginal delivery. Doing well. Voiding without difficulty. Ambulating well. Small amount of lochia. Patient denies headache, dizziness, cough, shortness of breath, chest pain, abdominal pain, leg pain, or heavy bleeding. Patient reports: appetite normal, voiding normally, pain well controlled, flatus, ambulating normally, no dizzy ambulation, no nauseated : doing well Objective - Vital Signs Latest vital signs: Vital Signs Temp Pulse Resp BP BP BP Pulse Ox 05/21/19 12:35 114/67 05/21/19 08:06 98.2 F 90 20 120/87 05/21/19 00:27 18 05/21/19 00:00 98.7 F 71 18 114/78 05/20/19 23:28 18 05/20/19 23:27 18 05/20/19 15:45 97.7 F 72 16 123/56 94 Intake and Output 05/20/19 05/21/19 05/21/19 23:59 07:59 15:59 Intake Total 240 300 320 Balance 240 300 320 Intake: Oral 240 320 Intake, Free Water 300 Other: Total, Intake Amount 240 320 # Voids Void 1 1 - Exam Cardiovascular: Present: Regular rate, Normal S1, Normal S2, No murmurs Lungs: Present: Clear to auscultation Abdomen: Present: normal appearance, soft, normal bowel sounds. Absent: distention, tenderness, guarding, rigidity Uterus: Present: normal, firm, fundal height below umbilicus. Absent: bogginess, tenderness Extremities: Present: normal. Absent: tenderness, edema
--- NOTE | 2019-05-21 12:55 | Discharge Summary ---
Providers - Providers Date of Admission: 05/19/19 14:34 Date of discharge: 05/21/19 Attending physician: VU CRESPO MD Primary care physician: VU CRESPO MD Hospitalization Reason for admission: induction of labor Delivery: Other procedures: none complications: none Discharge diagnosis: IUP at term delivered [place] baby: male Pertinent studies: Labs Hospital course: Normal hospital course. Condition at discharge: Good Disposition: DC-01 TO HOME OR SELFCARE - Discharge Diagnoses (1) Term delivered Status: Acute Plan - Provider Discharge Summary Activity: routine, no sex for 6 weeks, no heavy lifting 4 weeks, no strenuous exercise Diet: routine Instructions: routine Additional instructions: Call your doctor immediately for: * Fever > 100.5 * Heavy vaginal bleeding ( >1 pad per hour) * Severe persistent headache * Shortness of breath * Reddened, hot, painful area to leg or breast - Follow up plan Follow up: VU CRESPO MD [Primary Care Provider] - 6 Weeks
[2019-05-21 16:59] VITALS: BP 115/67
== END 2019-05-21 16:05 | disposition home or self-care (01) | DRG 807 ==
LOC: LD 15:57 → TRG 15:57 → LD 05-19 14:34 → OB 05-19 19:14
PROVIDERS: ADMIT Obstetrics & Gynecology; ATTEND Obstetrics & Gynecology
PROC: 10E0XZZ Delivery of Products of Conception, External Approach (ICD-10-PCS; principal; 2019-05-19)
PROC: 10907ZC Drainage of Amniotic Fluid, Therapeutic from Products of Conception, Via Natural or Artificial Opening (ICD-10-PCS; 2019-05-19)
PROC: 3E033VJ Introduction of Other Hormone into Peripheral Vein, Percutaneous Approach (ICD-10-PCS; 2019-05-19)
PROC: 3E0R3BZ Introduction of Anesthetic Agent into Spinal Canal, Percutaneous Approach (ICD-10-PCS; 2019-05-19)
PROC: 00HU33Z Insertion of Infusion Device into Spinal Canal, Percutaneous Approach (ICD-10-PCS; 2019-05-19)
PROC: 10H073Z Insertion of Monitoring Electrode into Products of Conception, Via Natural or Artificial Opening (ICD-10-PCS; 2019-05-19)
DX: O69.81X0 Labor and delivery complicated by cord around neck, without compression, not applicable or unspecified (principal); Z37.0 Single live birth; O99.214 Obesity complicating childbirth; E66.01 Morbid (severe) obesity due to excess calories; Z3A.39 39 weeks gestation of pregnancy; Z82.49 Family history of ischemic heart disease and other diseases of the circulatory system
CPT/HCPCS: 36415; 85014; 85018; 85027; 86850; 86900; 86901; G0378; J2590; J7120